=== PATIENT | female | born 1990 | race Two or more races ===

== ENCOUNTER 2019-08-22 10:46 | Emergency (ER) | payer SELFPAY ==
[~2019-08-22] VITALS: Ht 154.9 cm; Wt 90.7 kg
--- NOTE | 2019-08-22 11:00 | NUR ---
ED Nurse Note: pt walked into er complaining of cough since 08/18/2019. 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 pt aaox4, calm and cooperative. no respiratory or cardiac distress noted. pt ambulatory. pt has occasional coughs without any sputum production.
[2019-08-22] MEDS ORDERED: IBUPROFEN600 MG ORAL (11:21)
[2019-08-22] MEDS ORDERED: ROBITUSSIN NIG237 ML PO (11:21)
[2019-08-22] MEDS ORDERED: TAMIFLU75 MG ORAL (11:21)
[2019-08-22 11:28] VITALS: BP 137/71
--- NOTE | 2019-08-22 11:42 | NUR ---
ER DISCHARGE NOTE: Pt cleared to be discharged per ERMD, pt is aox4, on room air, vital signs stable with current temp of 98.0. pt was given dc and prescription instructions, pt verbalized understanding, pt id band removed. pt is able to ambulate with steady gait. pt took all belongings.
[2019-08-22 11:44] VITALS: BP 135/73
--- NOTE | 2019-08-23 14:07 | Emergency Room Report ---
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 Denies any vomiting or diarrhea denies any sensation of shortness of breath Denies any contact with known source with positive coronavirus Patient also has a mild sore throat is any change with her voice Allergies: Coded Allergies: No Known Allergies (Unverified , 08/22/19) Patient History Past Medical History: see triage record Last Menstrual Period: 08/01/19 Now: No Reviewed Nursing Documentation: PMH: Agreed; PSxH: Agreed Nursing Documentation-PMH Past Medical History: No Stated History Review of Systems All Other Systems: negative except mentioned in HPI Physical Exam Vital Signs Date Time Temp Pulse Resp B/P (MAP) Pulse Ox O2 Delivery O2 Flow Rate FiO2 08/22/19 10:59 98.8 101 17 131/67 (88) 97 Room Air Sp02 EP Interpretation: reviewed, normal General Appearance: well appearing, no apparent distress Head: normocephalic, atraumatic Eyes: bilateral eye PERRL, bilateral eye EOMI ENT: hearing grossly normal, normal pharynx, TMs + canals normal, uvula midline Neck: full range of motion, supple, no meningismus, no bony tend Respiratory: lungs clear, normal breath sounds, no rhonchi, no respiratory distress, no retraction, no accessory muscle use Cardiovascular #1: normal peripheral pulses, regular rate, rhythm, no edema, no gallop, no JVD, no murmur Gastrointestinal: normal bowel sounds, non tender, soft, no mass, no organomegaly, non-distended, no guarding, no hernia, no pulsatile mass, no rebound Genitourinary: no CVA tenderness Musculoskeletal: normal inspection Neurologic: motor strength/tone normal, housekeeping aid III-XII nml as tested, oriented x3 , sensory intact, responsive Psychiatric: mood/affect normal Skin: no rash Lymphatic: normal inspection, no adenopathy Medical Decision Making Diagnostic Impression: Primary Impression: Upper respiratory infection Additional Impression: flu symptoms ER Course Multiple differentials and consideration including but not limited to flu, pneumonia, coronavirus Department of Public Health was contacted they do not recommend further testing given the patient's symptoms and presentation Patient is given 2-week self quarantine and self-isolation recommendations and will return with any changes or concerns Last Vital Signs Date Time Temp Pulse Resp B/P (MAP) Pulse Ox O2 Delivery O2 Flow Rate FiO2 08/22/19 11:44 98.0 90 18 135/73 97 Room Air Status: unchanged Disposition: HOME, SELF-CARE Condition: Stable Scripts Ibuprofen* (MOTRIN*) 600 Mg Tablet 600 MG ORAL Q8H PRN for For Pain, #20 TAB 0 Refills Prov: Minda Pryor DO 08/22/19 Dextromethorphan Hb/Doxylamine (ROBITUSSIN NIGHTTIME COUGH DM) 237 Ml Liquid 10 ML PO QHS for 5 Days, ML Prov: Minda Pryor DO 08/22/19 Oseltamivir Phosphate (Tamiflu) 75 Mg Capsule 75 MG ORAL TWICE A DAY for 5 Days, CAP Prov: Minda Pryor DO 08/22/19 Referrals: NOT CHOSEN IPA/MD,REFERRING (PCP) [facility] Patient Instructions: Influenza, Adult, [id number], Upper Respiratory Infection, Adult Additional Instructions: [facility] has been contacted. Through their checklist you do not meet criteria for testing. This does not mean that you do not have the coronavirus. Please perform self quarantine for the next 14 days. Self hygiene And return to the ER with any worsening symptoms Patient is provided with the discharge instructions notified to follow up with primary doctor in the next 2-3 days otherwise return to the er with any worsening symptoms. Please note that this report is being documented using [employer] technology. This can lead to erroneous entry secondary to incorrect interpretation by the dictating instrument. Minda Pryor DO Aug 23, 2019 14:07
== END 2019-08-22 11:44 | disposition home or self-care (01) ==
LOC: EMR 11:40
DX: J06.9 Acute upper respiratory infection, unspecified (principal); J11.1 Influenza due to unidentified influenza virus with other respiratory manifestations
CPT/HCPCS: 99282